=== PATIENT | female | born 1975 | race Caucasian/White ===

== ENCOUNTER 2021-01-07 18:08 | Emergency (ER) | payer OTHER ==
[2021-01-07 18:26] VITALS: BP 109/68; PULSE 83; TEMP 98.8; BMI 24.1
[2021-01-07] MEDS ORDERED: ONDANSETRON 4 MG/2 ML VIAL IVPUSH ONE (20:01)
[2021-01-07] MEDS ORDERED: SODIUM CHLORIDE 1,000 ML IV STA (20:01)
[2021-01-07] MEDS ORDERED: morphine SULFATE 4 MG/ML VIAL IVPUSH ONE (20:01)
[2021-01-07] MEDS ORDERED: morphine SULFATE 4 MG/ML VIAL ONE (20:58)
[2021-01-07] MEDS ORDERED: ONDANSETRON 4 MG/2 ML VIAL ONE (20:58)
[2021-01-07 21:06] LABS: BASO % 0.7 % (0-2.0); EOS % 1.4 % (0-4.5); HEMATOCRIT 35.1 % (32.4-45.2); HEMOGLOBIN 11.7 GM/dL (10.7-15.3); LYMPH % 34.9 % (8-40); MCH 27.7 pg (25.7-33.7); MCHC 33.4 g/dl (32.0-36.0); MEAN PLT VOLUME 8.9 fl (7.5-11.1); MONO % 6.8 % (3.8-10.2); NEUT % 56.2 % (42.8-82.8); PLATELET COUNT 183 10^3/uL (134-434); RBC 4.22 M/mm3 (3.60-5.2); WHITE BLOOD COUNT 6.2 K/mm3 (4.0-10.0)
[2021-01-07 21:29] LABS: ALBUMIN 3.6 g/dl (3.4-5.0); CALCIUM 8.9 mg/dL (8.5-10.1)
[2021-01-07 21:30] LABS: BLOOD UREA NITROGEN 9.2 mg/dL (7-18)
[2021-01-07 21:33] LABS: CREATININE 0.6 mg/dL (0.55-1.3)
[2021-01-07 21:34] LABS: BILIRUBIN,TOTAL 0.1 mg/dL (0.2-1); TOT PROT 7.6 g/dl (6.4-8.2)
[2021-01-07 21:55] LABS: EPI CELLS 8 /uL (0-25.1); HYALINE CASTS 1 /uL (0-3.1); PH,URINE 5.5 (5.0-8.0); URINE APPEARANCE CLEAR; URINE BACTERIA 9 /uL (0-1359); URINE BILIRUBIN NEGATIVE (NEGATIVE); URINE COLOR YELLOW; URINE GLUCOSE (UA) NEGATIVE (NEGATIVE); URINE KETONE NEGATIVE (NEGATIVE); URINE LEUK ESTERASE TRACE (NEGATIVE); URINE NITRITE NEGATIVE (NEGATIVE); URINE PROTEIN NEGATIVE (NEGATIVE); URINE RBC 3605 /uL (0-23.9); URINE UROBILINOGEN 0.2 mg/dL (0.2-1.0); URINE WBC 33 /uL (0-25.8)
[2021-01-07] MEDS ORDERED: ONDANSETRON *ODT* 4 MG TABLET ONE (22:14)
[2021-01-07] MEDS ORDERED: ONDANSETRON *ODT* 4 MG TABLET SL ONE (22:14)
[2021-01-08] MEDS ORDERED: METOCLOPRAMIDE HCL INJECTION 10 MG/2 ML VIAL IVPB ONE (00:42)
[2021-01-08] MEDS ORDERED: DEXTROSE 5%-0.45% SALINE 1,000 ML IV SCH (00:45)
[2021-01-08] MEDS ORDERED: METOCLOPRAMIDE HCL INJECTION 10 MG/2 ML VIAL ONE (00:50)
== END 2021-01-08 02:09 | disposition home or self-care (01) ==
LOC: JER 18:08
PROC: 3E033GC Introduction of Other Therapeutic Substance into Peripheral Vein, Percutaneous Approach (ICD-10-PCS; principal; 2021-01-07)
PROC: 3E033GC Introduction of Other Therapeutic Substance into Peripheral Vein, Percutaneous Approach (ICD-10-PCS; 2021-01-07)
PROC: 3E033NZ Introduction of Analgesics, Hypnotics, Sedatives into Peripheral Vein, Percutaneous Approach (ICD-10-PCS; 2021-01-07)
PROC: 3E033GC Introduction of Other Therapeutic Substance into Peripheral Vein, Percutaneous Approach (ICD-10-PCS; 2021-01-07)
PROC: 3E0337Z Introduction of Electrolytic and Water Balance Substance into Peripheral Vein, Percutaneous Approach (ICD-10-PCS; 2021-01-07)
DX: R10.2 Pelvic and perineal pain (principal); D25.9 Leiomyoma of uterus, unspecified
CPT/HCPCS: 36415; 76830-TC; 80053; 81003; 83690; 84703; 85025; 87077; 87086; 87186; 87491; 87591; 99284-25; Q0162

== ENCOUNTER 2021-02-13 04:58 | Day surgery (SDC) | payer OTHER ==
[2021-02-11 15:52] VITALS: BMI 21.6
[2021-02-13 10:46] VITALS: TEMP 99
[2021-02-13 12:49] VITALS: BP 104/58; PULSE 62
== END 2021-02-13 13:20 | disposition home or self-care (01) ==
LOC: JASU-ENDO 04:58
PROVIDERS: ATTEND Internal Medicine Gastroenterology
PROC: 0DJD8ZZ Inspection of Lower Intestinal Tract, Via Natural or Artificial Opening Endoscopic (ICD-10-PCS; principal; 2021-02-13 09:30)
PROC: 0DB78ZX Excision of Stomach, Pylorus, Via Natural or Artificial Opening Endoscopic, Diagnostic (ICD-10-PCS; 2021-02-13 09:30)
DX: K29.50 Unspecified chronic gastritis without bleeding (principal)
CPT/HCPCS: 81025; 88305-TC; 88342-TC

== ENCOUNTER 2023-03-02 13:53 | Emergency (ER) | payer OTHER ==
[2023-03-02 14:01] VITALS: BP 112/75; PULSE 85; RESP 16; TEMP 98.6; BMI 24.7
== END 2023-03-02 18:12 | disposition home or self-care (01) ==
LOC: JERFT 13:53
DX: H92.02 Otalgia, left ear (principal); H93.8X2 Other specified disorders of left ear; H72.92 Unspecified perforation of tympanic membrane, left ear
CPT/HCPCS: 99283-25

== ENCOUNTER 2024-01-01 14:55 | Emergency (ER) | payer OTHER ==
[2024-01-01 15:18] VITALS: BMI 43.4
[2024-01-01 15:40] LABS: BASO % 0.6 % (0-2.0); EOS % 2.1 % (0-4.5); HEMATOCRIT 37.6 % (32.4-45.2); HEMOGLOBIN 12.7 GM/dL (10.7-15.3); MCH 26.2 pg (25.7-33.7); MCHC 33.8 g/dl (32.0-36.0); MEAN CELL VOLUME 77.5 fl (80-96); MEAN PLT VOLUME 8.4 fl (7.5-11.1); MONO % 7.3 % (3.8-10.2); PLATELET COUNT 248 10^3/uL (134-434); RBC 4.86 M/mm3 (3.60-5.2); RDW 18.3 % (11.6-15.6)
[2024-01-01] MEDS ORDERED: DEXAMETHASONE SOD PHOSPHATE 10 MG/1 ML VIAL ONE (16:00)
[2024-01-01] MEDS: DEXAMETHASONE SOD PHOSPHATE 10 MG/1 ML VIAL IVPUSH ONE (16:04)
[2024-01-01 16:05] LABS: POTASSIUM 3.7 mmol/L (3.5-5.1)
[2024-01-01 16:07] LABS: CALCIUM 9.8 mg/dL (8.5-10.1)
[2024-01-01 16:08] LABS: ALBUMIN 3.9 g/dl (3.4-5.0); BLOOD UREA NITROGEN 15.8 mg/dL (7-18)
[2024-01-01 16:11] LABS: CREATININE 0.9 mg/dL (0.55-1.3)
[2024-01-01 16:13] LABS: BILIRUBIN,TOTAL 0.6 mg/dL (0.2-1); TOT PROT 8.3 g/dl (6.4-8.2)
[2024-01-01] MEDS ORDERED: ACETAMINOPHEN INJECTION 100 ML IVPB ONE (16:31)
[2024-01-01] MEDS: LACTATED RINGERS SOLUTION 1000 ML INFUS.BAG IV ONE (16:47)
[2024-01-01] MEDS: ACETAMINOPHEN 1000 MG/100 ML BAG IVPB ONE (16:48)
[2024-01-01 16:52] LABS: VENOUS BASE EXCESS 1.2 mmol/L (-2-2); VENOUS O2 SATURATION 83.1 % (70-80); VENOUS PCO2 17.7 mmHg (38-52)
[2024-01-01 18:02] LABS: URINE AMPHETAMINES NEGATIVE (NEGATIVE)
[2024-01-01 18:03] LABS: METHADONE, UR NEGATIVE (NEGATIVE); OPIATES, URI NEGATIVE (NEGATIVE); PHENCYCLIDINE,URINE NEGATIVE (NEGATIVE)
[2024-01-01 18:10] LABS: COCAINE, UR NEGATIVE (NEGATIVE); URINE BARBITURATES NEGATIVE (NEGATIVE); URINE BENZODIAZEPINES NEGATIVE (NEGATIVE)
[2024-01-01 18:35] LABS: VENOUS PH 7.657 (7.310-7.410)
[2024-01-01 20:07] VITALS: BP 118/81; PULSE 78; RESP 16
== END 2024-01-01 20:12 | disposition home or self-care (01) ==
LOC: JER 14:55
PROC: 3E033NZ Introduction of Analgesics, Hypnotics, Sedatives into Peripheral Vein, Percutaneous Approach (ICD-10-PCS; principal; 2024-01-01)
PROC: 3E033GC Introduction of Other Therapeutic Substance into Peripheral Vein, Percutaneous Approach (ICD-10-PCS; 2024-01-01)
DX: R20.2 Paresthesia of skin (principal); R53.1 Weakness; R51.9 Headache, unspecified; R05.9 Cough, unspecified; Z20.822 Contact with and (suspected) exposure to COVID-19
CPT/HCPCS: 0241U-QW; 36415; 71045-TC-FY; 80053; 80307; 82803; 84484; 84703; 85025; 99285-25; J0131; J1100

== ENCOUNTER 2024-01-04 14:31 | Emergency (ER) | payer OTHER ==
[2024-01-04 14:42] VITALS: TEMP 97.7; BMI 24.3
[2024-01-04 17:15] LABS: VENOUS BASE EXCESS -1.8 mmol/L (-2-2); VENOUS O2 SATURATION 28.8 % (70-80); VENOUS PH 7.327 (7.310-7.410)
[2024-01-04] MEDS ORDERED: METOCLOPRAMIDE HCL INJECTION 10 MG/2 ML VIAL ONE (18:58)
[2024-01-04] MEDS ORDERED: ACETAMINOPHEN INJECTION 100 ML IVPB ONE (18:59)
[2024-01-04 20:36] LABS: BASO % 0.6 % (0-2.0); EOS % 1.5 % (0-4.5); HEMATOCRIT 41.5 % (32.4-45.2); HEMOGLOBIN 13.8 GM/dL (10.7-15.3); MCH 26.3 pg (25.7-33.7); MCHC 33.2 g/dl (32.0-36.0); MEAN CELL VOLUME 79.2 fl (80-96); MEAN PLT VOLUME 8.7 fl (7.5-11.1); MONO % 6.7 % (3.8-10.2); NEUT % 44.2 % (42.8-82.8); PLATELET COUNT 259 10^3/uL (134-434); RBC 5.24 M/mm3 (3.60-5.2); WHITE BLOOD COUNT 8.8 K/mm3 (4.0-10.0)
[2024-01-04] MEDS: METOCLOPRAMIDE HCL INJECTION 10 MG/2 ML VIAL IVPB ONE (20:38)
[2024-01-04] MEDS: SODIUM CHLORIDE 1,000 ML IV STA (20:38)
[2024-01-04 20:46] LABS: POTASSIUM 4.7 mmol/L (3.5-5.1)
[2024-01-04 20:48] LABS: ALBUMIN 3.9 g/dl (3.4-5.0); BLOOD UREA NITROGEN 10.1 mg/dL (7-18)
[2024-01-04 20:51] LABS: CREATININE 0.9 mg/dL (0.55-1.3)
[2024-01-04 20:53] LABS: BILIRUBIN,TOTAL 0.4 mg/dL (0.2-1); TOT PROT 8.2 g/dl (6.4-8.2)
[2024-01-04] MEDS: ACETAMINOPHEN 1000 MG/100 ML BAG IVPB ONE (21:02)
[2024-01-04 22:40] VITALS: BP 110/67; PULSE 69; RESP 16
== END 2024-01-05 00:20 | disposition home or self-care (01) ==
LOC: JER 14:31
PROC: 3E033GC Introduction of Other Therapeutic Substance into Peripheral Vein, Percutaneous Approach (ICD-10-PCS; principal; 2024-01-04)
PROC: 3E033NZ Introduction of Analgesics, Hypnotics, Sedatives into Peripheral Vein, Percutaneous Approach (ICD-10-PCS; 2024-01-04)
PROC: 3E0337Z Introduction of Electrolytic and Water Balance Substance into Peripheral Vein, Percutaneous Approach (ICD-10-PCS; 2024-01-04)
DX: R51.9 Headache, unspecified (principal); R94.6 Abnormal results of thyroid function studies; R11.0 Nausea; R07.0 Pain in throat
CPT/HCPCS: 36415; 70450-TC; 80053; 82803; 84436; 84443; 85025; 87651; 96361; 96374; 96375; 99284-25; J0131

== ENCOUNTER 2025-04-24 14:48 | Emergency (ER) | payer OTHER ==
[2025-04-24 15:00] VITALS: BP 107/70; PULSE 70; RESP 18; TEMP 98.2; BMI 23.9
[2025-04-24] MEDS ORDERED: METOCLOPRAMIDE HCL 10 MG TABLET (FP) PO ONE (15:56)
[2025-04-24] MEDS ORDERED: ACETAMINOPHEN 325 MG TABLET (FP) ONE (15:56)
[2025-04-24] MEDS: METOCLOPRAMIDE HCL 10 MG TABLET (FP) PO ONE (16:07)
[2025-04-24] MEDS: ACETAMINOPHEN 500 MG TABLET (FP) PO ONE (16:07)
== END 2025-04-24 16:08 | disposition home or self-care (01) ==
LOC: JER 14:48
DX: R51.9 Headache, unspecified (principal); R11.0 Nausea; H73.92 Unspecified disorder of tympanic membrane, left ear; H73.91 Unspecified disorder of tympanic membrane, right ear
CPT/HCPCS: 99283-25